=== PATIENT | female | born 1985 | race Caucasian/White ===

== ENCOUNTER → 2016-07-31 | Outpatient (CLI) | payer BC ==
[~2016-07-31] MED LIST: AMBIEN 10MG10 M1 PO; BCP TD; CELEXA40 MG PO; DICLOFENAC; DONNATAL 10 ML10 ML PO; ELAVIL50 MG PO; FLEXERIL10 MG PO; HYDROCODONE/APAP; IMODIUM A-D2 M1 PO; LORTAB; LORTAB 5/500 501 TAB PO; PERCOCET 325 MG1 TA2 PO; PERCOCET 325 MG1 TAB PO; PREDNISONE20 MG PO; TYLENOL #3 301 UDTAB PO; VICODIN 5/5001 UDTAB PO; WELLBUTRIN75 MG PO; YASMIN 3 MG-0.01 TAB PO; ZOFRAN 4MG T4 MG/TAB PO; ZOFRAN4 M1 PO; ZOLOFT 100MG100 MG PO; ZOLOFT50 MG PO; [UNRECOGNIZED DRUG - OTHER] PO
== END ==
LOC: BHSO 10:54
DX: F43.10 Post-traumatic stress disorder, unspecified (principal)

== ENCOUNTER → 2016-08-31 | Outpatient (CLI) | payer BC | LOC: BHSO 10:46 | DX: F31.81 Bipolar II disorder (principal) ==

== ENCOUNTER 2016-09-09 16:03 | Emergency (ER) | payer BC ==
[~2016-09-09] VITALS: Ht 162.6 cm; Wt 113.6 kg
[~2016-09-09 16:03] MED LIST changes: -PERCOCET 325 MG1 TAB PO; -PREDNISONE20 MG PO
[2016-09-09 17:39] LABS: BASO # 0.1 (0.0-0.2); BASO % 0.8 % (0.0-2.0); EOS # 0.3 (0.0-0.7); EOS % 2.2 % (0-4.0); GRAN # 9.5 (1.4-6.5); GRAN % 66.1 % (42.2-75.2); HEMATOCRIT 42.5 % (37.0-47.0); LYMPH # 3.2 (1.2-3.4); LYMPH % 22.2 % (20.0-51.0); MEAN CELL VOLUME 88 fl (80.0-100.0); MEAN CORPUSCULAR HEMOGLOBIN 29 pg (27.0-31.0); MEAN CORPUSCULAR HGB CONC 33 g/dl (33.0-37.0); MEAN PLATELET VOLUME 9.7 fl (7.4-10.4); MONO # 1.2 (0.1-0.6); MONO % 8.3 % (1.7-9.3); PLATELET COUNT 412 K/mm3 (130-400); RED BLOOD COUNT 4.85 M/mm3 (4.10-5.30); REDCELL DISTRIBUTION WIDTH-CV 13.2 % (11.5-14.5); WHITE BLOOD COUNT 14.4 K/mm3 (4.8-10.8)
[2016-09-09 17:44] LABS: ADJUSTED CALCIUM 8.8 mg/dL (8.4-10.2); ALANINE AMINOTRANSFERASE 20 U/L (9-52); ALBUMIN 4.2 gm/dL (3.5-5.0); ALKALINE PHOSPHATASE 113 U/L (50-136); ANION GAP 12 mmol/L (7-16); BILIRUBIN,TOTAL 0.8 mg/dL (0.0-1.0); BLOOD UREA NITROGEN 11 mg/dL (7-17); CARBON DIOXIDE 22 mmol/L (22-30); CHLORIDE 105 mmol/L (98-107); CREATININE, serum 0.68 mg/dL (0.52-1.25); GLUCOSE 85 mg/dL (74-106); POTASSIUM 4.2 mmol/L (3.4-5.0); SODIUM 139 mmol/L (137-145)
[2016-09-09 17:49] LABS: AMPHETAMINE URINE NEGATIVE; BARBITURATES URINE NEGATIVE; BENZODIAZEPINES URINE POSITIVE; BUPRENORPHINE URINE NEGATIVE; METHADONE URINE NEGATIVE; OPIATES URINE NEGATIVE; OXYCODONE URINE NEGATIVE; PHENCYCLIDINE URINE NEGATIVE; PROPOXYPHENE URINE NEGATIVE; THC CANNABINOIDS URINE NEGATIVE
[2016-09-09 17:53] LABS: ACETAMINOPHEN < 10 ug/mL (10-30); SALICYLATE < 1.0 mg/dL
[2016-09-09 19:53] VITALS: TEMP 97.9
[2016-09-09 23:11] VITALS: BP 125/63; PULSE 96
== END 2016-09-10 00:47 ==
LOC: COL.ER 16:03
PROVIDERS: Emergency Medicine
DX: F32.2 Major depressive disorder, single episode, severe without psychotic features (principal); R45.851 Suicidal ideations; F41.9 Anxiety disorder, unspecified; F43.10 Post-traumatic stress disorder, unspecified; M54.9 Dorsalgia, unspecified
CPT/HCPCS: J1885; J3360

== ENCOUNTER 2016-09-14 21:39 | Emergency (ER) | payer BC ==
[~2016-09-14] VITALS: Ht 162.6 cm; Wt 90.9 kg
[2016-09-14 21:43] VITALS: TEMP 98.7
[2016-09-14 22:28] LABS: PH 6 (5-8); SQUAMOUS EPITHELIAL 0-2 /hpf; URINE APPEARANCE Hazy; URINE BACTERIA Rare /hpf; URINE BILIRUBIN Negative (NEGATIVE); URINE BLOOD Negative (NEGATIVE); URINE COLOR Yellow; URINE GLUCOSE Negative (NEGATIVE); URINE KETONE Negative (NEGATIVE); URINE RBC 0-2 /hpf; URINE UROBILINOGEN Negative (NEGATIVE)
[2016-09-14] MEDS ORDERED: PERCOCET 325 MG1 TAB PO (23:09)
[2016-09-14] MEDS ORDERED: PREDNISONE20 MG PO (23:09)
[2016-09-14 23:33] VITALS: BP 141/87; PULSE 89
== END 2016-09-14 23:33 | disposition home or self-care (01) ==
LOC: COL.ER 21:39
PROVIDERS: Emergency Medicine
DX: M79.89 Other specified soft tissue disorders (principal); L27.1 Localized skin eruption due to drugs and medicaments taken internally; T42.1X5A Adverse effect of iminostilbenes, initial encounter; F32.9 Major depressive disorder, single episode, unspecified
CPT/HCPCS: J1170; J2405; J7512

== ENCOUNTER → 2016-09-17 | Outpatient (CLI) | payer BC ==
[~2016-09-17] MED LIST changes: +PERCOCET 325 MG1 TAB PO; +PREDNISONE20 MG PO
== END ==
LOC: BHSO 10:06
DX: F33.2 Major depressive disorder, recurrent severe without psychotic features (principal)

== ENCOUNTER → 2016-09-18 | Outpatient (CLI) | payer BC | LOC: BHSO 10:28 | DX: F43.10 Post-traumatic stress disorder, unspecified (principal) ==

== ENCOUNTER → 2016-10-09 | Outpatient (CLI) | payer BC | LOC: BHSO 08:41 | DX: F43.10 Post-traumatic stress disorder, unspecified (principal) ==

== ENCOUNTER 2017-04-15 09:49 | Emergency (ER) | payer SELFPAY ==
[~2017-04-15] VITALS: Ht 165.1 cm; Wt 113.6 kg
[2017-04-15 09:50] VITALS: TEMP 98.5
[2017-04-15] MEDS ORDERED: PROZAC 20MG20 MG PO (09:55)
[2017-04-15] MEDS ORDERED: AMBIEN 10MG10 MG PO (09:55)
[2017-04-15] MEDS ORDERED: KLONOPIN 1MG1 MG PO (09:55)
[2017-04-15] MEDS ORDERED: PERCOCET 325 MG1 TA2 PO (12:46)
[2017-04-15] MEDS ORDERED: FLEXERIL 1010 MG/TAB PO (12:46)
[2017-04-15 13:15] VITALS: BP 122/92; PULSE 120
== END 2017-04-15 13:10 | disposition home or self-care (01) ==
LOC: COL.ER 09:49
DX: M54.5 Low back pain (principal); F32.9 Major depressive disorder, single episode, unspecified; F41.9 Anxiety disorder, unspecified; F17.210 Nicotine dependence, cigarettes, uncomplicated; Z98.890 Other specified postprocedural states; W17.89XA Other fall from one level to another, initial encounter
CPT/HCPCS: J1170; J2360; J2405

== ENCOUNTER 2017-12-18 17:09 | Emergency (ER) | payer SELFPAY ==
[~2017-12-18] VITALS: Ht 165.1 cm; Wt 113.6 kg
[~2017-12-18 17:09] MED LIST changes: +AMBIEN 10MG10 MG PO; +FLEXERIL 1010 MG/TAB PO; +KLONOPIN 1MG1 MG PO; +PROZAC 20MG20 MG PO
[2017-12-18 17:12] VITALS: BP 139/85; PULSE 110; TEMP 99.3
[2017-12-18] MEDS ORDERED: BUSPAR5 MG PO (17:34)
[2017-12-18] MEDS ORDERED: NORCO 325 MG-7.1 TAB PO (18:04)
== END 2017-12-18 18:28 | disposition home or self-care (01) ==
LOC: COL.ER 17:09
DX: S82.832A Other fracture of upper and lower end of left fibula, initial encounter for closed fracture (principal); F32.9 Major depressive disorder, single episode, unspecified; F41.9 Anxiety disorder, unspecified; F17.210 Nicotine dependence, cigarettes, uncomplicated; F12.90 Cannabis use, unspecified, uncomplicated; W10.9XXA Fall (on) (from) unspecified stairs and steps, initial encounter
CPT/HCPCS: Q4045

== ENCOUNTER 2019-11-24 21:54 | Inpatient (IN) | payer BC ==
[~2019-11-24] VITALS: Ht 165.1 cm; Wt 114.5 kg
[~2019-11-24 21:54] MED LIST changes: +BUSPAR5 MG PO; +NORCO 325 MG-7.1 TAB PO
[2019-11-25] VITALS (10 sets, daily range): BP systolic 104–127; BP diastolic 60–84; PULSE 57–87; TEMP 97.8–98.6
[2019-11-25 01:34] LABS: BASO # 0.1 (0.0-0.2); BASO % 0.8 % (0.0-2.0); EOS # 0.3 (0.0-0.7); GRAN # 8.6 (1.4-6.5); GRAN % 64.9 % (42.2-75.2); HEMATOCRIT 41.7 % (37.0-47.0); HEMOGLOBIN 13.3 g/dl (12.5-16.0); LYMPH # 3.3 (1.2-3.4); LYMPH % 25.2 % (20.0-51.0); MEAN CELL VOLUME 87 fl (80.0-100.0); MEAN CORPUSCULAR HEMOGLOBIN 28 pg (27.0-31.0); MEAN CORPUSCULAR HGB CONC 32 g/dl (33.0-37.0); MEAN PLATELET VOLUME 10.1 fl (7.4-10.4); MONO # 0.9 (0.1-0.6); MONO % 6.7 % (1.7-9.3); PLATELET COUNT 337 K/mm3 (130-400); RED BLOOD COUNT 4.81 M/mm3 (4.10-5.30); REDCELL DISTRIBUTION WIDTH-CV 13.7 % (11.5-14.5)
[2019-11-25 01:40] LABS: INR 1.1 (0.8-3.0); PROTHROMBIN TIME 12.8 SECONDS (9.7-12.8)
[2019-11-25 01:45] LABS: BILIRUBIN,TOTAL 0.5 mg/dL (0.0-1.0); C-REACTIVE PROTEIN 1.8 mg/dL (0.0-0.9); CALCIUM 9.1 mg/dL (8.4-10.2); CREATININE, serum 0.73 (0.52-1.25); POTASSIUM 3.9 mmol/L (3.4-5.0); TOTAL PROTEIN 7.4 gm/dL (6.4-8.2)
[2019-11-25] MEDS ORDERED: AMBIEN 5MG TABLE5 MG PO (04:40)
[2019-11-25] MEDS ORDERED: ZOLOFT 100MG100 MG PO (04:41)
[2019-11-25] MEDS ORDERED: CATAPRES 0.1MG0.1 MG PO (04:43)
--- NOTE | 2019-11-25 14:04 | NUR ---
SW contacted the patient to discuss discharge plan. The patient is COVID-19 positive. The patient lives in [place] with her , Alcon (ph#[phone]), and daughter. She reports independence with ADLs and has a walker. The patient's PCP is Dr. Beau Pittman and she receives her medications at [facility]. She reports no difficulties obtaining her meds. The patient does not have advanced directives in EMR, but reports that she believes she may have completed one when she had back surgery. She states that she would have designated her mother, Mireille (ph#[phone]), back then. The patient plans to return home with her family upon discharge. No additional needs at this time.
--- NOTE | 2019-11-25 15:13 | NUR ---
Vancomycin Initial Dosing Pharmacy Note Ordering provider: Zane Rdz MD Indication/duration: HOGSHEAD COOPER infection, 7 days LABS: SCr=0.73, CrCl~118, GFR=91 Recommendation: Will continue Vancomycin 1.5 gm IV q8h. Pharmacy will continue to monitor and check a Vancomycin trough on 11/27/19. Loading dose: 2.5 grams Maintenance dose: 1.5 grams every 8 hours Trough goal: 15-20 ug/mL
[2019-11-25 15:42] LABS: HEMATOCRIT 40.9 % (37.0-47.0); HEMOGLOBIN 13.3 g/dl (12.5-16.0); MEAN CELL VOLUME 86 fl (80.0-100.0); MEAN CORPUSCULAR HEMOGLOBIN 28 pg (27.0-31.0); MEAN CORPUSCULAR HGB CONC 33 g/dl (33.0-37.0); PLATELET COUNT 346 K/mm3 (130-400); RED BLOOD COUNT 4.75 M/mm3 (4.10-5.30); REDCELL DISTRIBUTION WIDTH-CV 13.7 % (11.5-14.5)
--- NOTE | 2019-11-25 20:15 | NUR ---
Received report from Michaela. Patient is positive for covid. She is anxious and crying because of her headache and she's saying she wants to go home and see her kids. Dilaudid PRN and Ativan given for headache and anxiety. She was able to walk independently to urinate. She covers her eyes whenever i will turn on the light.
--- NOTE | 2019-11-25 20:50 | NUR ---
Patient is still crying saying the headache didn't go away. She still have severe pain and asking for a stronger medication. This nurse called Batsheva to ask for another medication and Tramadol was given.
--- NOTE | 2019-11-25 22:00 | NUR ---
Dilaudid PRN given as she was still crying for pain. This nurse suggests an ice pack to help relieve pain and she said that it would be a good idea since she's using an ice pack at home for her pain and it gives her relief. She asked for a sleeping pill as well and says she's taking Ambien at home. Batsheva was contacted for the sleeping pill.
[2019-11-26 04:38] VITALS: BP 117/76; PULSE 89; TEMP 98.7
--- NOTE | 2019-11-26 06:30 | NUR ---
Patient's headache has been decreased already. She says ice pack was able to help her with the pain. Afebrile the whole shift. Will endorse to day shift nurse.
[2019-11-26 07:29] LABS: CALCIUM 7.7 mg/dL (8.4-10.2); CREATININE, serum 0.6 (0.52-1.25); POTASSIUM 3.9 mmol/L (3.4-5.0)
[2019-11-26 07:57] LABS: BASO # 0.1 (0.0-0.2); BASO % 0.9 % (0.0-2.0); EOS # 0.3 (0.0-0.7); EOS % 2.9 % (0-4.0); GRAN # 7.1 (1.4-6.5); GRAN % 66.6 % (42.2-75.2); HEMATOCRIT 37.4 % (37.0-47.0); HEMOGLOBIN 12.1 g/dl (12.5-16.0); LYMPH # 2.2 (1.2-3.4); LYMPH % 20.8 % (20.0-51.0); MEAN CELL VOLUME 87 fl (80.0-100.0); MEAN CORPUSCULAR HEMOGLOBIN 28 pg (27.0-31.0); MEAN CORPUSCULAR HGB CONC 32 g/dl (33.0-37.0); MEAN PLATELET VOLUME 9.6 fl (7.4-10.4); MONO # 0.9 (0.1-0.6); MONO % 8.4 % (1.7-9.3); PLATELET COUNT 310 K/mm3 (130-400); RED BLOOD COUNT 4.32 M/mm3 (4.10-5.30); REDCELL DISTRIBUTION WIDTH-CV 13.6 % (11.5-14.5)
[2019-11-26 08:00] VITALS: BP 128/72; PULSE 86; TEMP 98.3
[2019-11-26 10:15] VITALS: BP 117/82; PULSE 96
[2019-11-26 10:34] LABS: TOTAL PROTEIN,CSF 17 mg/dL (15-45)
--- NOTE | 2019-11-26 11:00 | NUR ---
Patient had her lumbar puncture done this morning. She initially was going to refuse it due to having a CSF and severe headache in the past due to a spinal injury/surgery. Explained that there is usually a big difference between having a headache from a leak and having a controlled puncture without a leak. She stated she is just very anxious and worried because she has had spinal fusions and does not want her headached to get worse. She agreed to get it done if she could have a dose of IV ativan for the procedure, it was ordered and given. Patient tolerated the procedure well. She did have increased pain to head afterwards but she thought it was from having to lay flat. Denies nausea at this time. Dilauded given for pain. Patient is resting comfortably at this time. Explained she will be moving to another unit and why. No other changes at this time. Call light within reach.
[2019-11-26 12:18] LABS: CSF APPEARANCE CLEAR; CSF COLOR COLORLESS; CSF MONONUCLEAR 100 % (70-100); CSF POLYMORPHONUCLEAR 0 % (0-6); CSF RBC 110 /mm3 (0-0)
[2019-11-26 16:00] VITALS: BP 108/72; PULSE 86; TEMP 98.2
--- NOTE | 2019-11-26 18:00 | NUR ---
Patients headache continued to get worse this afternoon. Notified Dr Rdz and he ordered and MRV. Patient was given another dose of ativan before that procedure. She tolerated it well. We also increased her dilauded dose to 0.5mg and that seems to be helping her headache. This afternoon we tried percocet but she did not tolerate it well because she had not been able to each much. She started to vomit. Zofran given, no throwing up since. Patient continues to be anxious at times and start crying about her diagnosis and being alone in the hospital. Her IV site was changed this afternoon to the left forearm. Former site was painful with flushing. No other changes at this time. Call light within reach.
[2019-11-26 19:17] VITALS: BP 110/48; PULSE 98; TEMP 98.2
--- NOTE | 2019-11-26 19:30 | NUR ---
Resting in bed. Assessment complete. Lungs dimished throughout. Heart sounds normal. Bowels active x4. Pulses present throughout. No edema noted. IV left forearm infusing without complications. Reports 9/10 head and back pain. Provided with PRN percocet at this time. Denies other needs. Call light in reach. Will monitor.
--- NOTE | 2019-11-26 21:00 | NUR ---
Patient reports unrelieved pain with percocet. Provided with PRN dilaudid. Also requested PRN ambien. Provided to patient. Denies other needs at this time.
[2019-11-26 23:31] VITALS: BP 107/72; PULSE 80; TEMP 98.1
--- NOTE | 2019-11-27 00:01 | NUR ---
Reports 7/10 head and back pain. Provided with PRN dilaudid at this time
[2019-11-27 03:15] VITALS: BP 105/56; PULSE 80; TEMP 97.7
--- NOTE | 2019-11-27 04:09 | NUR ---
Rates pain 8/10 in head neck and back. Provided with PRN dilaudid at patient request. Denies other needs. Call light in reach.
--- NOTE | 2019-11-27 05:10 | NUR ---
Patient required x1 percocet and dilaudid Q2H throughout night for pain control in head, neck, and back. Otherwise uneventful night. Resting in bed this AM. Call light in reach.
--- NOTE | 2019-11-27 07:11 | NUR ---
Report given to ERIK Flores
[2019-11-27 08:37] VITALS: BP 120/83; PULSE 84; TEMP 97.9
--- NOTE | 2019-11-27 08:50 | NUR ---
Pt resting in the room, has C/O pain medications given for relief. Shift assessments complete, left Pt call light in reach, bed in lowest position.
[2019-11-27 11:39] LABS: HSV 2 DNA PCR QUAL Not Detected (())
[2019-11-27 16:21] VITALS: BP 99/54; PULSE 76; TEMP 98
--- NOTE | 2019-11-27 18:31 | NUR ---
Pt resting in room, headache much relieved afert dose of toradol and dyphenhydramine, Pt now able to sleep, Pt had no other complaints durin g the day, VS have remained stable.
--- NOTE | 2019-11-27 18:36 | NUR ---
Pt resting in the room, no C/O pain today, diet changed to mechanical soft after swallow study completed this afternoon, recommended thin liquids and prompt Pt to tuck her chin when swallowing. No other complaints today, VS have remained stable.
[2019-11-27 20:33] VITALS: BP 115/59; PULSE 95; TEMP 97.9
--- NOTE | 2019-11-27 20:40 | NUR ---
Resting in bed. Assessment complete. Lungs dimished. Heart sounds normal. Bowels active x4. Pulses present throughout. No edema noted. Reports 7/10 neck and back pain. Provided with PRN toradol. Also requesting PRN zofran for nasuea and ambien for sleep. Will provide to patient. Denies other needs at this time. IV left forearm working without complications. Will monitor. Call light in reach.
[2019-11-28] VITALS: BP 107/63; PULSE 95; TEMP 98.7
--- NOTE | 2019-11-28 00:10 | NUR ---
Patient reports 7/10 pain and anxiety. Provided with PRN dilaudid and ativan at this time. Reports "hot flashes." Provided with cool rag and decreased room temp. Afebrile at this time. patient educated to report next "hot flash." Denies other needs at this time. Call light in reach.
--- NOTE | 2019-11-28 01:27 | NUR ---
Patient reports 02/28 headache. Reports pain increasing. Provided with PRN percocet at this time..
--- NOTE | 2019-11-28 03:30 | NUR ---
Patient requested PRN toradol. Provided to patient. Denies other needs. Call light in reach.
[2019-11-28 03:37] VITALS: BP 105/64; PULSE 67; TEMP 97.9
--- NOTE | 2019-11-28 06:13 | NUR ---
Patient required PRN dilaudid, percocet, and toradol for pain control throughout night. Otherwise uneventful. Resting in bed asleep. Call light in reach.
--- NOTE | 2019-11-28 06:45 | NUR ---
Report given to ERIK Flores
[2019-11-28 08:46] LABS: ALBUMIN 3.2 gm/dL (3.5-5.0); BILIRUBIN,TOTAL 0.2 mg/dL (0.0-1.0); CREATININE, serum 0.6 (0.52-1.25); TOTAL PROTEIN 6.2 gm/dL (6.4-8.2)
[2019-11-28 08:48] LABS: BASO # 0.1 (0.0-0.2); BASO % 0.9 % (0.0-2.0); EOS # 0.3 (0.0-0.7); EOS % 3.4 % (0-4.0); GRAN # 6.9 (1.4-6.5); GRAN % 69.6 % (42.2-75.2); HEMOGLOBIN 11.6 g/dl (12.5-16.0); LYMPH # 1.7 (1.2-3.4); LYMPH % 16.9 % (20.0-51.0); MEAN CELL VOLUME 88 fl (80.0-100.0); MEAN CORPUSCULAR HEMOGLOBIN 28 pg (27.0-31.0); MEAN CORPUSCULAR HGB CONC 32 g/dl (33.0-37.0); MEAN PLATELET VOLUME 9.9 fl (7.4-10.4); MONO # 0.9 (0.1-0.6); PLATELET COUNT 320 K/mm3 (130-400); RED BLOOD COUNT 4.15 M/mm3 (4.10-5.30); REDCELL DISTRIBUTION WIDTH-CV 13.7 % (11.5-14.5)
[2019-11-28 08:52] LABS: HEMATOCRIT 36.3 % (37.0-47.0)
[2019-11-28 08:55] VITALS: BP 112/60; PULSE 92; TEMP 98.2
--- NOTE | 2019-11-28 09:05 | NUR ---
Pt awake and alert this upon entry, has C/O pain and headache, pain medications given for relief, talkative and appropriate, shift assessments complete, left Pt call light in reach, bed in lowest position.
[2019-11-28 16:36] VITALS: BP 110/61; PULSE 80; TEMP 98.1
--- NOTE | 2019-11-28 19:12 | NUR ---
Pt resting in the room, Pt light intolerant during the day, toladol with benedryl works well to curb her headache, has C/O pain in back and neck area, Pt has received medications for relief. VS have remained stable.
--- NOTE | 2019-11-28 20:00 | NUR ---
Resting in bed. Patient upset and crying due to prolonged hospital stay and wanting to be home with family. Provided with emotional support. Patient requested ativan. Provided at this time. Assessment complete. Lungs clear. Heart sounds normal. Bowels active x4. Pulses present throughout. No edema. IV left forearm infusing without complications. Denies needs at this time. Call light in reach. Will monitor.
[2019-11-28 20:02] VITALS: BP 124/96; PULSE 98; TEMP 98.1
--- NOTE | 2019-11-28 22:01 | NUR ---
Reports 8/10 head and back pain. Provided with PRN toradol at this time. Denies other needs. Call light in reach.
[2019-11-29 01:05] VITALS: BP 1229/80; BP 129/80; PULSE 78; TEMP 98
--- NOTE | 2019-11-29 02:38 | NUR ---
Reports 7/10 pain. Provided with PRN percocet at patient request.
--- NOTE | 2019-11-29 04:45 | NUR ---
Provided with scheduled benadryl and toradol. Denies other needs. Call light in reach.
[2019-11-29 05:06] VITALS: BP 106/68; PULSE 74; TEMP 97.9
--- NOTE | 2019-11-29 06:40 | NUR ---
Patient required toradol, benadryl, dilaudid, percocet, ativan, and ambien for pain control and rest. Otherwise uneventful night. Resting in bed this AM. Call light in reach.
[2019-11-29 07:46] VITALS: BP 104/67; PULSE 71; TEMP 97.7
--- NOTE | 2019-11-29 07:59 | NUR ---
Pt awake upon entry, has C/O headache and neck / back pain, medications given for rlief. Shift assessments complete, left Pt call light in reach, bed in lowest position.
[2019-11-29 13:24] VITALS: BP 147/91; PULSE 74; TEMP 98.1
[2019-11-29 19:29] VITALS: BP 143/93; PULSE 71; TEMP 98.2
--- NOTE | 2019-11-29 20:26 | NUR ---
Pt resting in the room today, has C/O headache that is no being adequately relieved, contacted physician and changed medications, new medication did not give adequate relief, contacted physician, new medication added, currently Pt is having good relief. No other complaints during the day. VS have remained stable.
--- NOTE | 2019-11-29 20:30 | NUR ---
Received report from Mark. Patient is alert and oriented. She complains of pain on her back and neck, pain score of 6/10. Dilaudid given. She states her headache is much more improved now and thinks the Depacon helped her with that. This nurse turned on the lights near the sink and she states she can toletare that light. She doesn't have to cover her eyes. She was hoping she can go home tomorrow.
--- NOTE | 2019-11-30 00:30 | NUR ---
Patient states she's starting to have pain again, 01/28. She said it's her headache, back and neck. I told her it's not her due yet for the Percocet and she only have Tylenol and Toradol but she said it doesn't work for her and requests for Dilaudid. This nurse explained to her that Dilaudid has been discontinued already and those are the only pain meds she has. She agreed to have Toradol since she will get the Depacon as well.
[2019-11-30 00:31] VITALS: BP 137/84; PULSE 72; TEMP 97.8
--- NOTE | 2019-11-30 02:00 | NUR ---
Patient states her IV is leaking. Upon checking, i was able to flush saline but no backflow noted. IV removed and reinsert at right hand, G22.
[2019-11-30 04:15] VITALS: BP 100/55; PULSE 66; TEMP 98
[2019-11-30 06:11] LABS: BASO # 0.1 (0.0-0.2); BASO % 0.4 % (0.0-2.0); EOS % 0.1 % (0-4.0); GRAN # 9.8 (1.4-6.5); GRAN % 87.5 % (42.2-75.2); HEMATOCRIT 41.3 % (37.0-47.0); HEMOGLOBIN 13.2 g/dl (12.5-16.0); LYMPH # 1.1 (1.2-3.4); LYMPH % 10.1 % (20.0-51.0); MEAN CELL VOLUME 87 fl (80.0-100.0); MEAN CORPUSCULAR HEMOGLOBIN 28 pg (27.0-31.0); MEAN CORPUSCULAR HGB CONC 32 g/dl (33.0-37.0); MEAN PLATELET VOLUME 10.2 fl (7.4-10.4); MONO # 0.2 (0.1-0.6); MONO % 1.5 % (1.7-9.3); PLATELET COUNT 377 K/mm3 (130-400); RED BLOOD COUNT 4.77 M/mm3 (4.10-5.30); REDCELL DISTRIBUTION WIDTH-CV 13.5 % (11.5-14.5)
--- NOTE | 2019-11-30 06:16 | NUR ---
Patient still with headache and back/neck pain but states that it is getting better compared to yesterday. She says Iban has helped her with her headache. Will endorse to day shift nurse.
[2019-11-30 06:20] LABS: ALBUMIN 4.1 gm/dL (3.5-5.0); BILIRUBIN,TOTAL 0.2 mg/dL (0.0-1.0); CALCIUM 9.1 mg/dL (8.4-10.2); CREATININE, serum 0.64 (0.52-1.25); POTASSIUM 4.6 mmol/L (3.4-5.0); TOTAL PROTEIN 7.5 gm/dL (6.4-8.2)
[2019-11-30 09:35] VITALS: BP 129/77; PULSE 70; TEMP 97.4
[2019-11-30] MEDS ORDERED: ZOFRAN ODT4 MG PO (10:22)
[2019-11-30] MEDS ORDERED: NAPROSYN500 MG PO (10:23)
[2019-11-30] MEDS ORDERED: PERCOCET 325 MG1 TA2 PO ×2 (10:24→10:34)
[2019-11-30] MEDS ORDERED: DEPAKOTE ER 50500 MG PO (10:30)
--- NOTE | 2019-11-30 13:52 | NUR ---
PATIENT DC TO [facility] @ 1310 VIA POV ACCOMPANIED BY CORE INSPECTOR. PRINTED DC INSTRUCTIONS TO INCLUDE MEDICATIONS, FOLLOW UP AND HOSPITAL DISCHARGE DIAGNOSIS REVIEWED WITH PATIENT. ALL QUESTIONS AND CONCERNS ADDRESSED DURING REVIEW.
== END 2019-11-30 13:10 | disposition home or self-care (01) | DRG 102 ==
LOC: COL.ER 21:54 → EU 11-25 00:05 → PEDS 11-26 13:06
PROVIDERS: Emergency Medicine; Student in an Organized Health Care Education/Training Program; ADMIT Student in an Organized Health Care Education/Training Program
PROC: 009U3ZX Drainage of Spinal Canal, Percutaneous Approach, Diagnostic (ICD-10-PCS; principal; 2019-11-26)
PROC: B01B1ZZ Fluoroscopy of Spinal Cord using Low Osmolar Contrast (ICD-10-PCS; 2019-11-26)
DX: G43.109 Migraine with aura, not intractable, without status migrainosus (principal); U07.1 COVID-19; E46 Unspecified protein-calorie malnutrition; Z68.41 Body mass index [BMI] 40.0-44.9, adult; F41.9 Anxiety disorder, unspecified; F17.210 Nicotine dependence, cigarettes, uncomplicated; Z88.8 Allergy status to other drugs, medicaments and biological substances; Z91.010 Allergy to peanuts; H53.143 Visual discomfort, bilateral; R41.0 Disorientation, unspecified; M43.6 Torticollis
CPT/HCPCS: 99232-AI; 99233-AI; A9585; G0378; J0696; J0780; J1100; J1170; J1200; J1885; J2060; J2405; J3010; J3370; J7030; J7040; J7050

== ENCOUNTER 2020-09-08 10:22 | Day surgery (SDC) | payer BC ==
[~2020-09-08] VITALS: Ht 165.1 cm; Wt 122.2 kg
[~2020-09-08 10:22] MED LIST changes: +AMBIEN 5MG TABLE5 MG PO; +CATAPRES 0.1MG0.1 MG PO; +DEPAKOTE ER 50500 MG PO; +NAPROSYN500 MG PO; +ZOFRAN ODT4 MG PO
--- NOTE | 2020-09-08 12:00 | NUR ---
HCG URINE AND HCG SERUM POSITIVE- DR LUZ CALLED. DR LUZ SAID HE WOULD COME TALK TO PATIENT
[2020-09-08] MEDS ORDERED: CATAPRES 0.1MG0.1 MG PO (12:04)
[2020-09-08] MEDS ORDERED: PROTONIX 40MG T40 MG PO (12:05)
[2020-09-08] MEDS ORDERED: CARAFATE 1GM1 G PO (12:06)
[2020-09-08] MEDS ORDERED: AMBIEN 10MG10 MG PO (12:07)
[2020-09-08] MEDS ORDERED: KLONOPIN 1MG1 MG PO (12:08)
[2020-09-08] MEDS ORDERED: PERCOCET 325 MG1 TA2 PO ×2 (12:09→12:57)
[2020-09-08 12:11] VITALS: BP 129/64; PULSE 98; TEMP 98.7
--- NOTE | 2020-09-08 13:00 | NUR ---
DISCHARGED IN CARE OF
== END 2020-09-09 13:00 | disposition home or self-care (01) ==
LOC: SDCO 10:22
PROVIDERS: Surgery
DX: O26.611 Liver and biliary tract disorders in pregnancy, first trimester (principal); K80.10 Calculus of gallbladder with chronic cholecystitis without obstruction; O99.211 Obesity complicating pregnancy, first trimester; E66.01 Morbid (severe) obesity due to excess calories; Z79.899 Other long term (current) drug therapy; O99.341 Other mental disorders complicating pregnancy, first trimester; F32.9 Major depressive disorder, single episode, unspecified; F41.9 Anxiety disorder, unspecified; O99.331 Smoking (tobacco) complicating pregnancy, first trimester; F17.210 Nicotine dependence, cigarettes, uncomplicated; Z88.8 Allergy status to other drugs, medicaments and biological substances; Z91.018 Allergy to other foods; Z20.822 Contact with and (suspected) exposure to COVID-19; Z53.8 Procedure and treatment not carried out for other reasons

== ENCOUNTER 2020-12-23 11:03 | Observation (INO) | payer BC ==
[~2020-12-23] VITALS: Ht 165.1 cm; Wt 120.1 kg
[2020-12-23] VITALS (8 sets, daily range): BP systolic 98–174; BP diastolic 32–91; PULSE 73–116; TEMP 97.8–98.9
[~2020-12-23 11:03] MED LIST changes: +CARAFATE 1GM1 G PO; +PROTONIX 40MG T40 MG PO
--- NOTE | 2020-12-23 11:50 | NUR ---
This RN to bedside for FHR doppler. Patient reports normal movement. Denies any cramping, VB, or LOF. FHR 150's per doppler. Primary RN notified.
[2020-12-23 12:11] LABS: BASO % 0.3 % (0.0-2.0); EOS # 0.3 (0.0-0.7); EOS % 1.9 % (0-4.0); GRAN % 76.1 % (42.2-75.2); HEMOGLOBIN 11.5 g/dl (12.5-16.0); LYMPH # 1.9 (1.2-3.4); LYMPH % 14.3 % (20.0-51.0); MEAN CELL VOLUME 87 fl (80.0-100.0); MEAN CORPUSCULAR HEMOGLOBIN 28 pg (27.0-31.0); MEAN CORPUSCULAR HGB CONC 32 g/dl (33.0-37.0); MEAN PLATELET VOLUME 10.1 fl (7.4-10.4); MONO # 0.9 (0.1-0.6); MONO % 6.9 % (1.7-9.3); PLATELET COUNT 316 K/mm3 (130-400); RED BLOOD COUNT 4.11 M/mm3 (4.10-5.30); REDCELL DISTRIBUTION WIDTH-CV 14.2 % (11.5-14.5)
[2020-12-23] MEDS ORDERED: ASPIRIN 81M81 MG/TA2 PO (12:12)
[2020-12-23 12:13] LABS: HEMATOCRIT 35.6 % (37.0-47.0)
[2020-12-23] MEDS ORDERED: VITAFUSION PO (12:17)
[2020-12-23] MEDS ORDERED: UNISOM25 MG PO (12:18)
[2020-12-23 12:31] LABS: ALBUMIN 3.4 gm/dL (3.5-5.0); BILIRUBIN,TOTAL 0.1 mg/dL (0.0-1.0); CALCIUM 9.1 mg/dL (8.4-10.2); CREATININE, serum 0.51 (0.52-1.25); POTASSIUM 3.7 mmol/L (3.4-5.0); TOTAL PROTEIN 6.7 gm/dL (6.4-8.2)
--- NOTE | 2020-12-23 12:33 | NUR ---
PATIENT STATES SHE HAS MADE PLAN TO END LIFE IN THE PAST. PATIENT STATES CURRENT MEDICATIONS AND SUPPORT SYSTEM AT HOME IS EFFECTIVE, DENIES ANY FURTHER EMOTIONAL NEEDS.
--- NOTE | 2020-12-23 16:40 | NUR ---
This RN to bedside. FHR 140's per doppler. No audible increases or decreases in FHR. Primary RN notified.
[2020-12-23] MEDS ORDERED: COLACE 100100 MG/CAP PO (16:57)
[2020-12-23] MEDS ORDERED: PERCOCET 325 MG1 TA2 PO (16:57)
--- NOTE | 2020-12-23 18:01 | NUR ---
dopplered heart tones in 140s, patient heart rate 113
--- NOTE | 2020-12-23 19:08 | NUR ---
Patient to 342 at 1825 post op lap perla. Ambulated from cart to bathroom with much encouragement. Voided large amount of clear yellow urine, requested staff to wipe her off after voiding, states she cannot wipe herself. Returns to bed. Lap sites to abdomen with edges well approximated, no redness or drainage noted. Bowel sounds active x4 quads. Patient cries continuously, prefers that family or staff to all her cares re: wipe her face, feed her ice cubes, etc. Encourage self cares and ambulation. No other c/o at this time.
--- NOTE | 2020-12-23 23:40 | NUR ---
This nurse to bedside for FHT check after patient states that she hasn't felt baby move since surgery. Reassured patient that this can be normal at 22 weeks gestation. FHR per doppler 140 bpm. Patient states reassurance.
[2020-12-24 00:39] VITALS: BP 93/53; PULSE 98; TEMP 97.7
--- NOTE | 2020-12-24 04:05 | NUR ---
Patient is resting quietly, has ambulated in hallway 3 times during this shift, pain managment reviewed with patient, obtained hearttones for patient, updated on plan of care, lap sites w/o issue, VS stable.
[2020-12-24 04:07] VITALS: BP 96/51; PULSE 95; TEMP 98.1
[2020-12-24 06:24] LABS: MEAN CELL VOLUME 89 fl (80.0-100.0); MEAN CORPUSCULAR HGB CONC 31 g/dl (33.0-37.0); MEAN PLATELET VOLUME 10.7 fl (7.4-10.4); PLATELET COUNT 284 K/mm3 (130-400); RED BLOOD COUNT 3.54 M/mm3 (4.10-5.30); REDCELL DISTRIBUTION WIDTH-CV 14.3 % (11.5-14.5)
[2020-12-24 06:33] LABS: HEMATOCRIT 31.5 % (37.0-47.0); HEMOGLOBIN 9.9 g/dl (12.5-16.0); MEAN CORPUSCULAR HEMOGLOBIN 28 pg (27.0-31.0)
[2020-12-24 06:40] LABS: ALBUMIN 2.9 gm/dL (3.5-5.0); BILIRUBIN,TOTAL 0.1 mg/dL (0.0-1.0); CALCIUM 8.8 mg/dL (8.4-10.2); CREATININE, serum 0.51 (0.52-1.25); POTASSIUM 3.6 mmol/L (3.4-5.0); TOTAL PROTEIN 5.8 gm/dL (6.4-8.2)
[2020-12-24 07:32] VITALS: BP 106/76; PULSE 100; TEMP 98.2
[2020-12-24 07:57] LABS: EOSINOPHIL 1 % (0-4); HYPOCHROMIA 2+; LYMPHOCYTE 13 % (20.0-51.0); NEUTROPHILS 80 % (42.0-75.2); PLATELET ESTIMATE NORMAL (NORMAL)
--- NOTE | 2020-12-24 08:10 | NUR ---
This RN to bedside for doppler FHR. Patient reports normal movement. Denies any cramping, LOF, or VB. FHR 140's per doppler, no audible increases or decreases.
--- NOTE | 2020-12-24 08:15 | NUR ---
Heart tones within normal limits per OB/L&D,RN. Pt OK to discharge home per MD Freddie
== END 2020-12-24 09:00 | disposition home or self-care (01) ==
LOC: SDCO 11:03 → SURG 17:11
PROVIDERS: ADMIT Surgery
DX: O99.612 Diseases of the digestive system complicating pregnancy, second trimester (principal); K80.64 Calculus of gallbladder and bile duct with chronic cholecystitis without obstruction; O99.212 Obesity complicating pregnancy, second trimester; E66.01 Morbid (severe) obesity due to excess calories; O99.342 Other mental disorders complicating pregnancy, second trimester; F41.9 Anxiety disorder, unspecified; F32.9 Major depressive disorder, single episode, unspecified; Z20.822 Contact with and (suspected) exposure to COVID-19; O99.332 Smoking (tobacco) complicating pregnancy, second trimester; F17.210 Nicotine dependence, cigarettes, uncomplicated; Z3A.21 21 weeks gestation of pregnancy; Z79.82 Long term (current) use of aspirin; Z79.899 Other long term (current) drug therapy
CPT/HCPCS: G0378; J1100; J1170; J2270; J2405; J2704; J3010; J7120; Q9967

== ENCOUNTER 2021-01-08 10:52 | Emergency (ER) | payer BC ==
[~2021-01-08] VITALS: Ht 165.1 cm; Wt 113.6 kg
[~2021-01-08 10:52] MED LIST changes: +ASPIRIN 81M81 MG/TA2 PO; +COLACE 100100 MG/CAP PO; +UNISOM25 MG PO; +VITAFUSION PO
[2021-01-08 10:59] VITALS: TEMP 97.8
[2021-01-08 12:03] LABS: BASO # 0.1 (0.0-0.2); BASO % 0.4 % (0.0-2.0); EOS # 0.4 (0.0-0.7); EOS % 3.9 % (0-4.0); GRAN % 71.1 % (42.2-75.2); HEMATOCRIT 37.6 % (37.0-47.0); HEMOGLOBIN 12.3 g/dl (12.5-16.0); LYMPH % 17.8 % (20.0-51.0); MEAN CELL VOLUME 87 fl (80.0-100.0); MEAN CORPUSCULAR HEMOGLOBIN 29 pg (27.0-31.0); MEAN CORPUSCULAR HGB CONC 33 g/dl (33.0-37.0); MEAN PLATELET VOLUME 9.6 fl (7.4-10.4); MONO # 0.7 (0.1-0.6); MONO % 6.3 % (1.7-9.3); PLATELET COUNT 374 K/mm3 (130-400); REDCELL DISTRIBUTION WIDTH-CV 14.3 % (11.5-14.5)
[2021-01-08 12:08] LABS: ALBUMIN 3.7 gm/dL (3.5-5.0); BILIRUBIN,TOTAL 0.2 mg/dL (0.0-1.0); C-REACTIVE PROTEIN 2.9 mg/dL (0.0-0.9); CALCIUM 8.9 mg/dL (8.4-10.2); CREATININE, serum 0.47 (0.52-1.25); TOTAL PROTEIN 7.1 gm/dL (6.4-8.2)
[2021-01-08 12:20] LABS: COLLECTION METHOD CLEAN CATCH
[2021-01-08 12:25] LABS: MUCOUS Present /lpf; PH 5 (5-8); URINE APPEARANCE Hazy; URINE BACTERIA None Seen /hpf; URINE BILIRUBIN Negative (NEGATIVE); URINE BLOOD Negative (NEGATIVE); URINE COLOR Yellow; URINE GLUCOSE Negative (NEGATIVE); URINE KETONE Negative (NEGATIVE); URINE LEUKOCYTE ESTERASE Negative (NEGATIVE); URINE NITRATE Negative (NEGATIVE); URINE PROTEIN(semi-quant) 1+ (NEGATIVE); URINE RBC 0-2 /hpf; URINE UROBILINOGEN Negative (NEGATIVE)
[2021-01-08] MEDS ORDERED: PERCOCET 325 MG1 TA2 PO (12:44)
[2021-01-08 12:52] VITALS: BP 121/69; PULSE 108
== END 2021-01-08 12:52 | disposition home or self-care (01) ==
LOC: COL.ER 10:52
PROVIDERS: Nurse Practitioner
DX: O26.892 Other specified pregnancy related conditions, second trimester (principal); G89.18 Other acute postprocedural pain; R10.9 Unspecified abdominal pain; Z3A.23 23 weeks gestation of pregnancy; Z87.891 Personal history of nicotine dependence; Z88.6 Allergy status to analgesic agent
CPT/HCPCS: J3010; J7030

== ENCOUNTER → 2021-03-09 | Outpatient (CLI) | payer BC ==
[~2021-03-09] MED LIST changes: +IBU600 MG PO; +PERCOCET 325 MG1 TA3 PO; +PROFERRIN ES12 MG PO
== END ==
LOC: DIA.ED 07:45
DX: O24.419 Gestational diabetes mellitus in pregnancy, unspecified control (principal)
CPT/HCPCS: G0108

== ENCOUNTER 2021-04-07 01:18 | Outpatient (CLI) | payer BC ==
[~2021-04-07] VITALS: Ht 165.1 cm; Wt 114.5 kg
[~2021-04-07 01:18] MED LIST changes: -IBU600 MG PO; -PERCOCET 325 MG1 TA3 PO; -PROFERRIN ES12 MG PO
--- NOTE | 2021-04-07 01:30 | NUR ---
0130- G3 L1, 35.4 pt ambulatory onto unit with complaints of contractions. Denies VB but feels her water may have broke. Sealy leaking of fluid, and has continued to feel some throughou the evening. Swab done and negative. No fluid flowed after SVE. SVE /-3. Positive movement per pt.
[2021-04-07 02:15] VITALS: BP 130/77; PULSE 112; TEMP 98.5
[2021-04-07] MEDS ORDERED: PROFERRIN ES12 MG PO (02:27)
[2021-04-07 02:45] VITALS: BP 133/74; PULSE 99
[2021-04-07 03:15] VITALS: BP 130/78; PULSE 104
[2021-04-07 03:40] VITALS: BP 128/74; PULSE 97
--- NOTE | 2021-04-07 03:45 | NUR ---
0345- Discharge instructions explained and provided. Pt verbalised understanding. No further questions. Changed back into personal clothes. Pt ambulatory off unit with daughter.
== END 2021-04-07 03:45 | disposition home or self-care (01) ==
LOC: LDRO 01:18
DX: O62.9 Abnormality of forces of labor, unspecified (principal); Z3A.35 35 weeks gestation of pregnancy

== ENCOUNTER 2021-04-10 10:16 | Outpatient (CLI) | payer BC ==
[~2021-04-10] VITALS: Ht 15.2 cm; Wt 114.5 kg
[~2021-04-10 10:16] MED LIST changes: +PROFERRIN ES12 MG PO
[2021-04-10 10:20] VITALS: BP 124/70; PULSE 111; TEMP 98.2
[2021-04-10 11:00] VITALS: BP 124/70; PULSE 111; TEMP 98.2
--- NOTE | 2021-04-10 11:03 | NUR ---
1020 PATIENT HERE FOR COMPLAINTS OF CONTRACTIONS GETTTING MORE INTENSE. EFM ON FHT 140 BABY VERY ACTIVE. EFM ON . SVE AMNIOTRACE NEGTIVE. SVE / ASSESSMENT COMPLETED. DAUGHTER AT BEDSIDE. DR LI UPDATED ON ALL ABOVE INFORMATIONS.
== END 2021-04-10 11:35 | disposition home or self-care (01) ==
LOC: LDRO 10:16 → LDR 10:30 → LDRO 11:35
DX: Z34.93 Encounter for supervision of normal pregnancy, unspecified, third trimester (principal); Z3A.36 36 weeks gestation of pregnancy
CPT/HCPCS: OP

== ENCOUNTER 2021-04-18 12:02 | Inpatient (IN) | payer BC ==
[~2021-04-18] VITALS: Ht 167.6 cm; Wt 115.0 kg
[2021-04-19] VITALS (17 sets, daily range): BP systolic 98–132; BP diastolic 58–76; PULSE 74–91; TEMP 97.7–98.9
--- NOTE | 2021-04-19 10:35 | NUR ---
1035: PT AMBULATORY TO UNIT FOR SCHEDULED PRIME CSECTION. EFM/TOCO PLACED. CATEGORY 1 STRIP. NO CONTRACTIONS NOTED. PT DENIES CONTRACTIONS, LEAKING OF FLUIDS, AND REPORTS POSITIVE MOVEMENT. FHR BASELINE 135 WITH ACCELERATIONS. MODERATE VARIABILITY. FOB AT BEDSIDE. VITAL SIGNS STABLE. 1145: PT AMBULATORY TO OR SUITE FOR SCHEDULED CSECTION. 1216: DELIVERY OF VIABLE MALE INFANT. CARE ASSUMED BY ALLA Chatman RN. INFANT TO WARMER FOR FURTHER ASSESSMENT. 1300: PT TO PACU TO BEGIN ASSESSMENT. LOCHIA MODERATE WITH 1 CLOT INITIALLY, THEN CONTINUES WNL WITH NO FURTHER CLOTTING. WILL CONTINUE WITH VITAL SIGNS AND FUNDAL MASSAGE PER PROTOCOL. 1330: PT TO ROOM 213 FOR CARES. STABLE CONDITION AT THIS TIME. LOCHIA WNL.
[2021-04-19 11:08] LABS: BASO # 0.1 (0.0-0.2); BASO % 0.7 % (0.0-2.0); EOS # 0.2 (0.0-0.7); EOS % 1.6 % (0-4.0); GRAN # 5.9 (1.4-6.5); GRAN % 61.9 % (42.2-75.2); HEMOGLOBIN 10.3 g/dl (12.5-16.0); LYMPH # 2.3 (1.2-3.4); LYMPH % 24.6 % (20.0-51.0); MEAN CELL VOLUME 86 fl (80.0-100.0); MEAN CORPUSCULAR HEMOGLOBIN 27 pg (27.0-31.0); MEAN CORPUSCULAR HGB CONC 31 g/dl (33.0-37.0); MEAN PLATELET VOLUME 10.4 fl (7.4-10.4); MONO % 10.6 % (1.7-9.3); PLATELET COUNT 275 K/mm3 (130-400); RED BLOOD COUNT 3.82 M/mm3 (4.10-5.30); REDCELL DISTRIBUTION WIDTH-CV 15.7 % (11.5-14.5)
[2021-04-19] MEDS ORDERED: PERCOCET 325 MG1 TA2 PO (11:08)
[2021-04-19 11:16] LABS: HEMATOCRIT 32.8 % (37.0-47.0)
[2021-04-20 08:30] VITALS: BP 128/78; PULSE 98; TEMP 98
--- NOTE | 2021-04-20 09:17 | NUR ---
Initial visit; Patient thanked Gas Station Operator for offering congratulations and God's blessings for the of her son. Gas Station Operator thanked mom for choosing [facility].
[2021-04-20 16:00] VITALS: BP 104/57; PULSE 97; TEMP 98.1
[2021-04-20 19:55] VITALS: BP 123/71; PULSE 102; TEMP 98.3
[2021-04-21 07:20] VITALS: BP 129/79; PULSE 76; TEMP 97.5
[2021-04-21] MEDS ORDERED: IBU600 MG PO (08:29)
[2021-04-21] MEDS ORDERED: PERCOCET 325 MG1 TA3 PO (08:29)
== END 2021-04-21 15:45 | disposition home or self-care (01) | DRG 788 ==
LOC: OB 12:02
PROVIDERS: ADMIT Obstetrics & Gynecology
PROC: 10D00Z1 Extraction of Products of Conception, Low, Open Approach (ICD-10-PCS; principal; 2021-04-19)
DX: O24.420 Gestational diabetes mellitus in childbirth, diet controlled (principal); O99.02 Anemia complicating childbirth; D64.9 Anemia, unspecified; O99.214 Obesity complicating childbirth; O99.344 Other mental disorders complicating childbirth; F41.9 Anxiety disorder, unspecified; O99.892 Other specified diseases and conditions complicating childbirth; M54.10 Radiculopathy, site unspecified; O99.62 Diseases of the digestive system complicating childbirth; K21.9 Gastro-esophageal reflux disease without esophagitis; Z3A.37 37 weeks gestation of pregnancy; Z37.0 Single live birth; Z86.16 Personal history of COVID-19; Z90.49 Acquired absence of other specified parts of digestive tract
CPT/HCPCS: J0690; J1100; J1885; J2270; J2370; J2405; J2590; J3010; J7120